=== PATIENT | female | born 1990 | race Two or more races ===

== ENCOUNTER 2019-01-08 14:37 | Emergency (ER) | payer OTHER ==
[~2019-01-08] VITALS: Ht 165.1 cm; Wt 61.2 kg
== END 2019-01-08 18:34 | disposition home or self-care (01) ==
LOC: ER 14:37
DX: K29.70 Gastritis, unspecified, without bleeding (principal)

== ENCOUNTER 2019-03-10 09:50 | Emergency (ER) | payer OTHER ==
[~2019-03-10] VITALS: Ht 162.6 cm; Wt 72.6 kg
== END 2019-03-10 14:23 | disposition home or self-care (01) ==
LOC: ER 09:50
DX: K52.9 Noninfective gastroenteritis and colitis, unspecified (principal)